=== PATIENT | male | born 1965 | race Caucasian/White ===

== ENCOUNTER → 2020-11-16 11:58 | Outpatient (CLI) | payer OTHER, SELFPAY ==
--- NOTE | 2020-11-16 12:01 | EKG12_ITS ---
Test Reason : PREOP Blood Pressure : / mmHG Vent. Rate : 066 BPM Atrial Rate : 066 BPM P-R Int : 172 ms QRS Dur : 086 ms QT Int : 378 ms P-R-T Axes : 048 011 051 degrees QTc Int : 396 ms Normal sinus rhythm Poor R wave progression Confirmed by BRADLEY ORELLANA, JESSE ([id number]), pictures editor ALEXYS YBARRA ([id number]) on 11/19/2020 1:22:49 PM Referred By: Spencer Anguiano Confirmed By:JESSE HUERTA MD
[2020-11-16 13:30] LABS: Hemoglobin 14.7 g/dL (13.0-16.5); Mean Corp Hgb Conc 33.4 g/dL (32-36); Mean Corpuscular Volume 80.9 fL (80-94); Mean Platelet Vol. 8.9 fl (6.2-12.0); Platelet Count 235 K/mm3 (150-450); RBC Distribution Width SD 37.8 fl (35.1-43.9); Red Blood Count 5.44 M/mm3 (4.6-6.2)
[2020-11-16 14:05] LABS: Anion Gap 6 (5-15); BUN 9 mg/dL (7-18); BUN/Creat Ratio 10.6 RATIO (10-20); Calcium,Total 8.9 mg/dL (8.5-10.1); Chloride 105 mmol/L (98-107); Creatinine, Serum 0.85 mg/dL (0.70-1.30); EST Glomerular Filtration Rate 100 mL/min (>60); Est Glom Filt Rate - Afr Amer 121 mL/min (>60); Glucose 122 mg/dL (74-106); Potassium 3.8 mmol/L (3.5-5.1); Sodium Level 139 mmol/L (136-145)
== END ==
PROVIDERS: PCP Family Medicine; Referring Provider Orthopaedic Surgery; Visit Provider Orthopaedic Surgery
DX: Z01.812 Encounter for preprocedural laboratory examination (principal); E11.9 Type 2 diabetes mellitus without complications; Z01.810 Encounter for preprocedural cardiovascular examination
CPT/HCPCS: 36415; 80048; 85027; 87635; 93005; C9803; U0002

== ENCOUNTER 2022-01-26 12:59 | Emergency (ER) | payer BC, OTHER, SELFPAY ==
[2022-01-26 13:00] VITALS: BP 170/107; PULSE 62; RESP 16; TEMP 36.2; O2SAT 96; BMI 30.7
--- NOTE | 2022-01-26 13:13 | EDS_ITS ---
HPI History of Present Illness Chief Complaint: Flank Pain Informant: patient Narrative Narrative: 56-year-old male presenting to the emergency department with right flank pain. Symptoms have been present for 2 weeks. They are constant but does wax and wane. Nothing seems to make them better or worse. It does not radiate. Denies any urinary symptoms. No change in bowel or bladder control. He denies any vomiting. Patient denies any prior abdominal surgeries. The patient reports no trauma. He denies any difficulty with movement. PFSH PFS Medical History (Updated 01/26/22 @ 14:[address] Mansoor Farmer DO) Hyperlipidemia Kidney stone Home Medications meloxicam [Mobic] 15 mg PO PRN PRN 08/28/14 [History Last Taken 08/24/14] hydrocodone-acetaminophen 1 tab PO Q6H PRN PRN 3 Days #12 tablet 01/26/22 [Rx Last Taken Unknown] Allergy/AdvReac Type Severity Reaction Status Date / Time No Known Allergies Allergy Verified 01/26/22 13:01 Surgical History (Updated 01/26/22 @ 13:[address] Mansoor Farmer DO) H/O knee surgery Social History (Updated 01/26/22 @ 13:[address] Mansoor Farmer DO) current gender identity: male Smoking Status: Never smoker substance use type: does not use ROS ROS ED Constitutional Constitutional ED: Denies chills or weight loss Eyes Eyes: Denies change in vision or diplopia ENT ENT ED: Denies ear pain, rhinorrhea or sore throat Cardiovascular Cardiovascular: Denies chest pain, orthopnea, palpitations or racing heartbeat Respiratory/Chest Respiratory/Chest: Denies cough, dyspnea or orthopnea Gastrointestinal Gastrointestinal: Denies abdominal pain, diarrhea, nausea or vomiting Genitourinary Genitourinary ED: Denies dysuria, hematuria or urinary frequency Musculoskeletal Musculoskeletal: Reports back pain; Denies arthralgias or myalgias Integumentary Denies abscess or rash Neurologic Neurologic: Denies headache(s) or weakness Psychiatric Psychiatric: Denies anxiety, depression, suicidal ideation or suicidal thoughts Endocrine Endocrinology: Denies polydipsia, polyphagia or polyuria Allergic/Immunologic Allergic/Immunologic ED: Denies mouth swelling, tongue swelling or urticaria EXAM Physical Exam Const Vital Signs: 01/26/22 13:00 Temperature 97.2 F L Temperature Source Temporal Pulse Rate 62 Respiratory Rate 16 Blood Pressure 170/107 H Blood Pressure Mean 128 Pulse Ox 96 Oxygen Delivery Method Room Air Positive well nourished and well developed General Appearance ED: well developed HEENT Reports normocephalic, head/scalp atraumatic, TM's clear and moist mucous membranes Negative for trauma Tympanic Membrane ED: Yes TM's clear Eyes PERRL and EOMs intact bilaterally Neck no lymphadenopathy, supple and no JVD Resp normal respiratory effort and clear to auscultation bilaterally Cardio regular rate, regular rhythm and no murmurs GI normal to inspection, nondistended, normoactive bowel sounds and non-tender Palpation: soft Back/Spine no CVA tenderness and normal ROM Lumbar Spine / Lower Back: Negative for lumbar spinal tenderness Extremity normal to inspection General Extremety ED: Negative for edema General Extremity: Negative for edema Neuro oriented x3 and CN's II-XII intact bilaterally Sensorium / Orientation: alert Motor Exam: strength 5/5 throughout Psych mental status grossly normal Mood & Affect: Negative for depressed or tearful Skin no rashes or lesions noted and no wounds MDM MDM MDM Narrative Medical decision making narrative: Basic blood work demonstrated normal CBC. CMP was normal except for glucose of 138. Urinalysis was normal. CT of the abdomen pelvis without oral and IV contrast was obtained. This demonstrated nonobstructing renal stones and a solitary gallstone. None of which I believe can explain his pain. He does not have any discomfort with eating nausea vomiting or right upper quadrant pain it is more CVA related. He does now state that it does feel better when he leans forward some raising the possibility this could be musculoskeletal Lab Data Attestation: I reviewed the patient's lab results. Labs: Laboratory Results - last 24 hr 01/26/22 01/26/22 01/26/22 13:20 13:20 14:15 WBC 4.5 RBC 5.34 Hgb 14.9 Hct 43.2 MCV 80.9 MCH 27.9 MCHC 34.5 RDW Std Deviation 38.2 RDW Coeff of Evelyne 13.2 Plt Count 175 MPV 8.5 Immature Gran % (Auto) 0.200 Neut % (Auto) 57.4 Lymph % (Auto) 29.3 [place] % (Auto) 8.7 Eos % (Auto) 4.0 Baso % (Auto) 0.4 Absolute Neuts (auto) 2.6 Absolute Lymphs (auto) 1.32 Nucleated RBC % 0 Sodium 139 Potassium 3.7 Chloride 107 Carbon Dioxide 28.0 Anion Gap 4 L BUN 15 Creatinine 0.71 Estim Creat Clear Calc 109.91 Est GFR (MDRD) Af Amer 148 Est GFR (MDRD) Non-Af 123 BUN/Creatinine Ratio 21.2 H Glucose 138 H Calcium 9.0 Total Bilirubin 0.40 AST 34 ALT 48 Alkaline Phosphatase 73 Total Protein 7.0 Albumin 3.9 Globulin 3.1 Albumin/Globulin Ratio 1.3 Urine Color Yellow Urine Clarity Clear Urine pH 6.0 Ur Specific [place] 1.015 Urine Protein Negative Urine Glucose (UA) Normal Urine Ketones Negative Urine Occult Blood Negative Urine Nitrite Negative Urine Bilirubin Negative Urine Urobilinogen Normal Ur Leukocyte Esterase Negative Urine RBC 0 SEEN Urine WBC 0 SEEN Ur Squamous Epith Cells 0 SEEN Urine Bacteria 0 SEEN Urine Mucus 0 SEEN Radiography Diagnostic Testing: Clinical Impression(s) from Imaging Studies Abdomen/Pelvis CT 01/26/22 13:13 IMPRESSION: Bilateral small nonobstructing renal stones. Electronically Signed: Esdras Richard MD at 14:14 EDT , Discharge Plan Triage Chief Complaint: Flank Pain ED Provider: Mansoor Farmer Dx/Rx/DC Orders Clinical Impression: Acute right flank pain Prescriptions: New hydrocodone-acetaminophen [hydrocodone-acetaminophen] 1 TABLET tablet 1 tab PO Q6H PRN PRN (Reason: Pain) 3 Days Qty: 12 RF: 0 No Action meloxicam [Mobic] 15 MG tablet 15 mg PO PRN PRN (Reason: Pain) RF: 0 Primary Care Provider: Leland Singh Referrals: Leland Singh DO [Primary Care Provider] - 3-5 Days if not improving Disposition Disposition: Home, Self Care
--- NOTE | 2022-01-26 13:13 | CT_ITS ---
STUDY: CT ABDOMEN AND PELVIS WITHOUT CONTRAST REASON FOR EXAM: Male, 56 years old. Kidney Stone RADIATION DOSAGE (If Supplied By Facility): CTDIvol = ( 11.68 ) mGy, DLP = ( 586.42 ) mGycm TECHNIQUE: Transaxial images were obtained from the dome of the diaphragm to the symphysis pubis without oral contrast, and without intravenous contrast. Sagittal and coronal images were reconstructed. Individualized dose optimization techniques were used for this CT. COMPARISON: None. FINDINGS: The visualized lung bases are unremarkable. The visualized portions of the heart are within normal limits. Normal liver. There is a solitary gallstone. Normal spleen. Normal pancreas. There is symmetric enlargement of the adrenal glands suggesting adrenal hyperplasia. Multiple bilateral nonobstructing renal stones. No hydronephrosis, ureteral stone, or ureteral dilatation. Normal visualized stomach. Normal small intestine. Normal colon. The appendix is visualized and appears normal. Normal abdominal aorta. Normal inferior vena cava. Normal retroperitoneum. Normal urinary bladder. Normal abdominal wall. Normal osseous structures. CT/Abdomen/Pelvis without Cont IMPRESSION: Bilateral small nonobstructing renal stones. Electronically Signed: Esdras Richard MD at 14:14 EDT ,
[2022-01-26 13:29] LABS: Absolute Lymphocyte Count 1.32 X10^3/uL (0.83-4.51); Absolute Neutrophil Count 2.6 X10^3/uL (2.0-7.7); Basophil# 0.02 X10^3/uL; Basophil% 0.4 % (0-1); Eosinophil# 0.18 X10^3/uL; Hematocrit 43.2 % (40-54); Hemoglobin 14.9 g/dL (13.0-16.5); Lymphocyte # 1.32 X10^3/ul (0.83-4.51); Lymphocyte % 29.3 % (19-41); Mean Corp Hgb Conc 34.5 g/dL (32-36); Mean Corpuscular Hgb 27.9 pg (27.0-32.0); Mean Corpuscular Volume 80.9 fL (80-94); Mean Platelet Vol. 8.5 fl (6.2-12.0); Monocyte# 0.39 X10^3/uL; Monocyte% 8.7 % (0-10); NRBC Flagged by Analyzer 0 % (0-5); Neutrophil # 2.58 X10^3/uL (2.7-7.7); Neutrophil % 57.4 % (47-70); Platelet Count 175 K/mm3 (150-450); RBC Distribution Width CV 13.2 % (11.6-14.6); RBC Distribution Width SD 38.2 fl (35.1-43.9); Red Blood Count 5.34 M/mm3 (4.6-6.2); White Blood Count 4.5 K/mm3 (4.4-11.0)
[2022-01-26 13:48] LABS: ALB/GLOB Ratio 1.3 RATIO (0.9-2.4); AST(SGOT) 34 U/L (15-37); Alanine Aminotransfer ALT/SGPT 48 U/L (16-61); Albumin, Serum 3.9 g/dL (3.2-5.0); Alkaline Phosphatase 73 U/L (45-117); Anion Gap 4 (5-15); BUN 15 mg/dL (7-18); BUN/Creat Ratio 21.2 RATIO (10-20); Chloride 107 mmol/L (98-107); Creatinine, Serum 0.71 mg/dL (0.70-1.30); EST Glomerular Filtration Rate 123 mL/min (>60); Est Glom Filt Rate - Afr Amer 148 mL/min (>60); Estimated Creatinine Clearance 109.91 ml/min; Globulin 3.1 g/dL (2.2-4.2); Glucose 138 mg/dL (74-106); Potassium 3.7 mmol/L (3.5-5.1); Sodium Level 139 mmol/L (136-145)
[2022-01-26 14:17] LABS: Bacteria 0 SEEN /hpf (None Seen); Mucous, Urine 0 SEEN /hpf (<or=2+); Red Blood Cells-Urine 0 SEEN /hpf (0-5); Squamous Epithelial Cells - UA 0 SEEN /hpf (0-5); White Blood Cells 0 SEEN /hpf (0-5)
[2022-01-26 14:21] LABS: Color, Urine Yellow (Yellow); Glucose, Dipstick Normal (Normal); Ketone-Dipstick Negative (Negative); Leukocyte Esterase-Dipstick Negative /ul (Negative); Nitrite-Dipstick Negative (Negative); Occult Blood-Urine Negative /ul (Negative); Protein-Dipstick Negative (Negative); Specific Gravity, Urine 1.015 (1.002-1.030); Urine Bilirubin Dipstick Negative (Negative); Urine Clarity Clear (Clear); Urine Urobilinogen Normal (Normal)
== END 2022-01-26 15:18 | disposition home or self-care (01) ==
PROVIDERS: Emergency Provider Emergency Medicine; PCP Student in an Organized Health Care Education/Training Program; Visit Provider Emergency Medicine
DX: R10.9 Unspecified abdominal pain (principal); Z87.442 Personal history of urinary calculi
CPT/HCPCS: 74176; 80053; 81001; 85025; 99283; A4216

== ENCOUNTER → 2024-10-19 | Outpatient (CLI) | payer BC, OTHER, SELFPAY ==
--- NOTE | 2024-10-19 14:09 | RAD_ITS ---
STUDY: X-RAY - RIGHT HAND REASON FOR EXAM: Male, 59 years old. PAIN/NUMBNESS TECHNIQUE: 3 views of the right hand. COMPARISON: None. FINDINGS: Normal radiocarpal articulation. Normal distal radioulnar joint. Normal visualized carpal bones. Normal carpal articulations. Normal carpometacarpal articulation of the thumb. Normal second through fifth carpometacarpal joints. Normal metacarpi. Normal metacarpophalangeal joint of the thumb. Normal interphalangeal joint of the thumb. Normal proximal and distal phalanges of the thumb. Normal metacarpophalangeal joints of the second through fifth fingers. Normal proximal and distal interphalangeal joints of the second through fifth fingers. Normal phalanges of the second through fifth fingers. The soft tissue structures are unremarkable. RAD/Hand Min 3 Views IMPRESSION: Normal x-ray examination of the hand. Electronically Signed: Paxton Lewis MD at 15:59 EST ,
--- NOTE | 2024-10-19 14:09 | RAD_ITS ---
STUDY: X-RAY - RIGHT WRIST REASON FOR EXAM: Male, 59 years old. PAIN/NUMBNESS/TINGLING/NODULE TECHNIQUE: 3 views of the right wrist were obtained. COMPARISON: None. FINDINGS: Normal visualized distal radius and ulna. Normal radiocarpal articulation. Normal distal radioulnar articulation. Normal carpal bones. Normal carpal articulations. Normal carpometacarpal articulation of the thumb. Normal second through fifth carpometacarpal articulations. Normal visualized metacarpal bones. The soft tissue structures are unremarkable. There is no demonstrated acute fracture. RAD/Wrist min 3 Views IMPRESSION: Normal x-ray examination of the right wrist. Electronically Signed: Paxton Lewis MD at 15:57 EST ,
--- NOTE | 2024-10-19 14:21 | NEURO ---
NCS and/or EMG Patient Report Ordering Doctor: BHASKAR PIKE DATE OF SERVICE: 10/19/24 Rodolfo presents for electrodiagnostic testing of the upper limbs. He reports numbness and tingling in the right hand. Electrodiagnostic findings: Right median motor nerve demonstrates prolonged latency with normal amplitude and reduced conduction velocity. Right ulnar motor response is within normal limits. Prolonged right median sensory latency at the wrist. Normal right median and right ulnar F?wave. Needle EMG testing was performed the right upper limb. All muscles tested showed no evidence of denervation with normal motor unit action potentials. Electrodiagnostic impression: This is an abnormal study Were 1 electrodiagnostic findings suggestive of right-sided median mononeuropathy. This is consistent with a mild to moderate right carpal tunnel syndrome. Multi Select Codes Neurology Neurology Interp Codes: 28934-42 Musc test done w/n test comp (interp) and 95521-86 Nrv cndj tst 5-6 studies (interp)
== END | disposition home or self-care (01) ==
PROVIDERS: PCP Student in an Organized Health Care Education/Training Program; Referring Provider Nurse Practitioner Adult Health; Visit Provider Nurse Practitioner Adult Health
DX: R20.0 Anesthesia of skin (principal); R22.30 Localized swelling, mass and lump, unspecified upper limb; M79.646 Pain in unspecified finger(s)
CPT/HCPCS: 73110; 73130; 95886; 95909